=== PATIENT | male | born 1960 | race Caucasian/White ===

== ENCOUNTER 2020-10-19 15:00 | Observation (INO) | payer BC ==
[~2020-10-19] VITALS: Ht 172.7 cm; Wt 108.0 kg
[~2020-10-19 15:00] MED LIST: CLONIDINE HCL0.1 MG PO; LIBRIUM 5 MG CAP5 MG PO; LIBRIUM CAP 1010 MG PO; LIBRIUM CAP 2525 MG PO; PERCOCET 5/325 T1 EA PO; THIAMINE HCL100 MG PO
[2020-10-19 16:06] LABS: HEMOGLOBIN 15.7 gm/dl (14.0-17.5); RED BLOOD COUNT 4.89 M/UL (4.20-5.50); WHITE BLOOD COUNT 12.7 K/UL (4.5-11.0)
[2020-10-19 16:18] LABS: BUN/CREATININE RATIO 18 (0-10)
[2020-10-19] MEDS ORDERED: IBUPROFEN800 MG PO (20:40)
[2020-10-19] MEDS ORDERED: LISINOPRIL20 MG PO (20:40)
[2020-10-19] MEDS ORDERED: AMLODIPINE BESY10 MG PO (20:40)
[2020-10-19] MEDS ORDERED: POTASSIUM99 M1 PO (20:41)
[2020-10-20 05:07] LABS: HEMOGLOBIN 13.9 gm/dl (14.0-17.5)
[2020-10-20 05:10] LABS: RED BLOOD COUNT 4.34 M/UL (4.20-5.50); WHITE BLOOD COUNT 7.8 K/UL (4.5-11.0)
[2020-10-20 05:37] LABS: BUN/CREATININE RATIO 21 (0-10)
[2020-10-20] MEDS ORDERED: KEPPRA 500 MG500 MG PO (08:41)
[2020-10-20] MEDS ORDERED: VITAMIN D325 MCG PO (20:41)
[2020-10-20] MEDS ORDERED: B COMPLEX1 EACH PO (20:41)
== END 2020-10-20 17:08 | disposition home or self-care (01) ==
LOC: ER1 15:00 → CDU 17:41 → PROG CARE 17:41
PROVIDERS: Emergency Medicine; ADMIT Internal Medicine
DX: R56.9 Unspecified convulsions (principal); F10.20 Alcohol dependence, uncomplicated; F17.220 Nicotine dependence, chewing tobacco, uncomplicated; T75.1XXA Unspecified effects of drowning and nonfatal submersion, initial encounter; I10 Essential (primary) hypertension; E55.9 Vitamin D deficiency, unspecified; E66.9 Obesity, unspecified; Z68.36 Body mass index [BMI] 36.0-36.9, adult; Z20.822 Contact with and (suspected) exposure to COVID-19; Z79.899 Other long term (current) drug therapy; Y93.89 Activity, other specified; Y90.0 Blood alcohol level of less than 20 mg/100 ml
CPT/HCPCS: 36415; 70450; 70551; 71045; 80053; 83690; 83735; 84100; 85025; 85610; 85730; 93005; 95816; 96365; 96366; 96375; 99285; G0378; G0480; J3411; J3475; J7030; U0002

== ENCOUNTER → 2021-05-19 | Outpatient (CLI) | payer BC ==
[~2021-05-19] MED LIST changes: +AMLODIPINE BESY10 MG PO; +B COMPLEX1 EACH PO; +IBUPROFEN800 MG PO; +KEPPRA 500 MG500 MG PO; +LISINOPRIL20 MG PO; +POTASSIUM99 M1 PO; +VITAMIN D325 MCG PO
== END ==
LOC: KOH-I 13:41
DX: M47.816 Spondylosis without myelopathy or radiculopathy, lumbar region (principal); M51.36 Other intervertebral disc degeneration, lumbar region; S32.049A Unspecified fracture of fourth lumbar vertebra, initial encounter for closed fracture
CPT/HCPCS: 72148